=== PATIENT | female | born 1985 | race Caucasian/White ===

== ENCOUNTER → 2024-12-17 | Outpatient (CLI) | payer BC, SELFPAY | END | disposition home or self-care (01) | LOC: PSN 08:26 | PROVIDERS: PCP Family Medicine; Referring Provider Psychiatry & Neurology Neurology; Visit Provider Psychiatry & Neurology Neurology | DX: R55 Syncope and collapse (principal); R56.9 Unspecified convulsions; F41.0 Panic disorder [episodic paroxysmal anxiety] | CPT/HCPCS: 95819 ==

== ENCOUNTER → 2025-01-22 | Outpatient (CLI) | payer BC, SELFPAY ==
--- NOTE | 2025-01-22 12:21 | MRI_ITS ---
PROCEDURE: BRAIN W/WO CONTRAST 01/22/2025 REASON FOR EXAM: SYNCOPE/PSEUDOSEIZURES TECHNIQUE: Procedure Code: MRIBRWW Modality: MR Procedure: BRAIN W/WO CONTRAST Multiplanar and multisequence images were obtained. CONTRAST: VOLUME: mL FINDINGS: A tiny solitary 2-3 mm focus of FLAIR hyperintensity within the subcortical white matter is noted within the left frontal lobe (series 9, image 17), of doubtful clinical significance. No corresponding enhancement. The cerebellar tonsils are at the level of the foramen magnum. Otherwise the brain parenchyma appears unremarkable. The smith-white matter differentiation is appropriate. The ventricles are normal in size and configuration. No midline shift. The midline structures are intact, specifically the corpus callosum, septum pellucidum, pituitary gland, and cerebellar vermis. The cervicomedullary junction appears unremarkable. Mild mucosal thickening within the bilateral maxillary and bilateral ethmoid sinuses. Diffusion-weighted images demonstrate no restricted diffusion. No abnormal enhancement pattern. MRI/Brain W/WO Contrast IMPRESSION: 1. Tiny solitary nonspecific FLAIR hyperintense focus within the left frontal white matter, of doubtful clinical significance. 2. Mild inferior cerebellar tonsillar ectopia. This is not significant enough to represent a Chiari 1 malformation, however this can result in crowding at the cervicomedullary junction. 3. Mild bilateral maxillary and ethmoid sinusitis. Reading Location: [id number]
== END | disposition home or self-care (01) ==
LOC: OPMRI 12:20
PROVIDERS: PCP Family Medicine; Referring Provider Psychiatry & Neurology Neurology; Visit Provider Psychiatry & Neurology Neurology
DX: R55 Syncope and collapse (principal); R56.9 Unspecified convulsions
CPT/HCPCS: 70553; A9575